=== PATIENT | male | born 1985 | race Caucasian/White ===

== ENCOUNTER 2024-07-04 16:21 | Emergency (ER) | payer OTHER, SELFPAY ==
--- NOTE | ~2024-07-04 | XR_ITS ---
EXAM: XR abdomen/kub 1V DATE: 07/04/2024 17:56 HISTORY: left flank pain . COMPARISON: None available. FINDINGS: Clear lung bases. Normal bowel gas pattern. No organomegaly. No abnormal abdominal calcifi cation. Regional bones and soft tissues normal for age. IMPRESSION: No radiographic evidence of obstruction or ileus. Reviewed, dictated and finalized at location K. TAL STRATEGY DIRECTOR
[2024-07-04 16:36] VITALS: BP 159/95; PULSE 99; RESP 20; TEMP 36.8; O2SAT 100
--- NOTE | 2024-07-04 17:44 | ED_ITS ---
HPI - General Adult General Chief complaint: Back Pain/Injury Stated complaint: Low Back Pain Source: patient Mode of arrival: ambulatory Limitations: no limitations History of Present Illness HPI narrative: Patient presents for evaluation of left flank pain for last 4 days. Pain is constant, dull, 4/10 in severity. No history of similar symptoms. No precipitating cause or injury. Pain does not radiate. He denies any abdominal pain, dysuria, hematuria, urinary frequency, hesitancy, decreased force of urinary stream or other urinary symptoms. No fever, chills, nausea, vomiting. He is . Denies concerns for STI. Denies urethral discharge or testicular pain. He took 200mg ibuprofen for his symptoms and pain improved. He typically drinks quite a bit of coffee. He has increased his water intake as he was concerned he may have a kidney stone. Related Data Allergies Allergy/AdvReac Type Severity Reaction Status Date / Time No Known Allergies Allergy Verified 07/04/24 17:10 Review of Systems Review of Systems: CONSTITUTIONAL: Denies fever, chills, or sweats. EYES: Denies visual changes, redness, or discharge. ENT: Denies rhinorrhea, congestion, sore throat, or otalgia. CARDIOVASCULAR: Denies chest pain, palpitations, or edema. RESPIRATORY: Denies cough or dyspnea. GASTROINTESTINAL: Denies abdominal pain, nausea, vomiting, or diarrhea. GENITOURINARY: Denies dysuria or hematuria. SKIN: Denies rash or itching. BACK: Reports left flank pain MUSCULOSKELETAL: Denies joint pain, or myalgia. NEUROLOGIC: Denies headache, numbness, dizziness, or weakness. PSYCHIATRIC: Denies anxiety or depression. FOR[facility]LY [facility], [facility] Past Medical History Medical History (Updated 07/04/24 @ 18:23 by PITER Hagen, SUSANNA) No pertinent past medical history Surgical History Surgical History No pertinent past surgical history Family History Family History Mother Family history non-contributory Social History Social History Living arrangements: with family Gender identity (if verbalized by the patient): Male Sexual Orientation (if Verbalized by the Patient): Straight or Heterosexual Spiritual care concerns: No Exam Narrative: GENERAL: Well-appearing, well-nourished, and in no acute distress. HEAD: Normocephalic, atraumatic. EYES: PERRLA and EOMI. ENT: Nares clear, no rhinorrhea or epistaxis. Mucous membranes moist. Orophary nx without tonsillar hypertrophy exudate or other lesions. Bilateral TMs pearly sousa nonbulging NECK: Supple. No adenopathy or masses. No carotid bruits or JVD CHEST: Clear to auscultation. No respiratory distress. No wheezes rales or rhonchi HEART: Regular rate and rhythm. No murmur heard. Normal peripheral pulses. ABDOMEN: Soft, nontender, nondistended, normal active bowel sounds. BACK: No tenderness in midline or paraspinous muscles of the lumbar spine. No CVA tenderness. EXTREMITIES: Normal range of motion. No edema. SKIN: Warm, dry, no rash. NEURO: No focal deficits. Alert and oriented x3. PSYCH: Normal mood and affect. Course Course Emergency Course: This is a 38-year-old male who presented for evaluation of left flank pain. Initial consideration was for musculoskeletal pain versus left-sided kidney stone. He has no tenderness in the midline or paraspinous muscles of the lumbar spine. He appeared quite well clinically. We discussed treatment options. We opted to proceed with KUB. No stone visualized on KUB. His pain is well controlled and he has no vomiting or fever/urinary symptoms. Will do a trial of Flomax. He was advised to follow up with primary care. He should go to the emergency department if he has worsening pain, vomiting, fever and inability to pass urine. Otherwise he will increase water intake NSAIDs as needed for pain. Patient in agreement with plan of care Level of Care: Express Care Visit Vital Signs Vital signs: Vital Signs Temperature 36.8 C 07/04/24 16:36 Pulse Rate 99 07/04/24 16:36 Respiratory Rate 20 07/04/24 16:36 Blood Pressure 159/95 H 07/04/24 16:36 Pulse Oximetry 100 07/04/24 16:36 Oxygen Delivery Room Air 07/04/24 16:36 Temperature 36.8 C 07/04/24 16:36 Pulse Rate 99 07/04/24 16:36 Respiratory Rate 20 12/31/24 16:36 Blood Pressure 159/95 H 07/04/24 16:36 Pulse Oximetry 100 07/04/24 16:36 Oxygen Delivery Room Air 07/04/24 16:36 Medical Decision Making Vital Signs Vital Signs: Vital Signs Temperature 36.8 C 07/04/24 16:36 Pulse Rate 99 07/04/24 16:36 Respiratory Rate 20 07/04/24 16:36 Blood Pressure 159/95 H 07/04/24 16:36 Pulse Oximetry 100 07/04/24 16:36 Oxygen Delivery Room Air 07/04/24 16:36 Temperature 36.8 C 07/04/24 16:36 Pulse Rate 99 07/04/24 16:36 Respiratory Rate 20 07/04/24 16:36 Blood Pressure 159/95 H 07/04/24 16:36 Pulse Oximetry 100 07/04/24 16:36 Oxygen Delivery Room Air 07/04/24 16:36 Lab Data Labs: Lab Results 07/04/24 Range/Units 17:05 POC Urine Color Yellow POC Urine Clarity Clear POC Urine pH 7.0 POC Ur Specif [place] 1.015 POC Urine Protein Negative (Negative) POC Ur Glucose (UA) Negative (Negative) POC Urine Ketones Negative (Negative) POC Urine Blood Negative (Negative) POC Urine Nitrite Negative (Negative) POC Urine Bilirubin Negative (Negative) POC Urine Urobilinogen 0.2 POC U Leukocyte Esteras Negative (Negative) Imaging Data Radiologist's impression: Ordering Physician: George Zaman APRN Date of Service: 07/04/24 Procedure(s): XR abdomen/kub 1V Accession Number(s): [id number] cc: George Zaman APRN; FELT FINISHER PHYSICIAN~ EXAM: XR abdomen/kub 1V DATE: 07/04/2024 17:56 HISTORY: left flank pain . COMPARISON: None available. FINDINGS: Clear lung bases. Normal bowel gas pattern. No organomegaly. No abnormal abdominal calcification. Regional bones and soft tissues normal for age. IMPRESSION: No radiographic evidence of obstruction or ileus. Discharge Plan Discharge Clinical Impression: Acute left flank pain Patient Disposition: Home, Self-Care Condition: Stable Instructions: Antibiotic Form, Flank Pain (ED) Additional Instructions: Increase water consumption Please go to the ER for worsening pain, vomiting, fever, or urinary symptoms Otherwise please follow up with primary care this week Patient Language: Lao Prescriptions: New tamsulosin [Flomax] 0.4 mg capsule 0.4 mg PO DAILY Qty: 10 0RF Follow-up/Referrals: Luis Wilson MD [Physician] - Time of Disposition: 18:23
[2024-07-04 17:58] LABS: EDUAAPPEAR Clear; EDUABILI Negative (Negative); EDUABLOOD Negative (Negative); EDUACOLOR1 Yellow; EDUAGLUCOSE Negative (Negative); EDUAKETONE Negative (Negative); EDUALEUKO Negative (Negative); EDUANITRATE Negative (Negative); EDUAPROTEIN Negative (Negative); EDUASPGRAVITY 1.015; EDUAUROBILI 0.2
== END 2024-07-04 18:25 | disposition home or self-care (01) ==
PROVIDERS: Emergency Provider Nurse Practitioner
DX: R10.9 Unspecified abdominal pain (principal)
CPT/HCPCS: 74018; 81003; 99203; G0463